=== PATIENT | male | born 1990 | race Caucasian/White ===

== ENCOUNTER → 2021-01-06 15:05 | Outpatient (CLI) | payer BC, SELFPAY ==
--- NOTE | 2021-01-06 15:15 | RAD_ITS ---
STUDY: X-RAY - LUMBAR SPINE REASON FOR EXAM: Male, 30 years old. LOW BACK PAIN BACK AND LEG PAIN TECHNIQUE: XR Spine Lumbar 2 or 3 Views COMPARISON: None FINDINGS: There is an exaggerated lumbar lordosis. There is no substantial scoliosis. There is a normal alignment of the vertebrae. Normal vertebral bodies and endplates. Normal disc space heights. Stool throughout the colon. The soft tissue structures are unremarkable. RAD/Lumbar Spine 2 or 3 Views IMPRESSION: There is an exaggerated lumbar lordosis. Constipation Electronically Signed: Claude Jimenez MD at 16:37 EST , Service support ,
== END ==
LOC: RAD 15:09
PROVIDERS: Referring Provider Anesthesiology Pain Medicine; Visit Provider Anesthesiology Pain Medicine
DX: M54.50 Low back pain, unspecified (principal); M79.606 Pain in leg, unspecified
CPT/HCPCS: 72100

== ENCOUNTER → 2021-02-11 15:19 | Outpatient (CLI) | payer BC, SELFPAY ==
--- NOTE | 2021-02-11 16:00 | MRI_ITS ---
STUDY: MRI LUMBAR SPINE WITHOUT CONTRAST REASON FOR EXAM: Male, 30 years old. BACK AND LEG PAIN TECHNIQUE: Standardized fat and water weighted pulse sequences were obtained in the sagittal and axial planes. COMPARISON: 01/06/2021 radiographs FINDINGS: T12-L1: Schmorl''s nodes. Mild disc bulge. Normal bilateral facet joints. Normal central canal and bilateral lateral recesses. Normal bilateral intervertebral neural foramina. Normal lumbar lordosis. There is no substantial scoliosis. Normal conus medullaris that terminates at the level of L1. L1-2: Normal endplates. Normal disc height, hydration and morphology. Normal bilateral facet joints. Normal central canal and bilateral lateral recesses. Normal bilateral intervertebral neural foramina. L2-3: Normal endplates. Normal disc height, hydration and morphology. Normal bilateral facet joints. Normal central canal and bilateral lateral recesses. Normal bilateral intervertebral neural foramina. L3-4: Normal endplates. Mild disc bulge indents the thecal sac. Normal bilateral facet joints. Normal central canal and bilateral lateral recesses. Normal bilateral intervertebral neural foramina. L4-5: Normal endplates. Mild disc bulge. Normal bilateral facet joints. Normal central canal and bilateral lateral recesses. Normal bilateral intervertebral neural foramina. L5-S1: Normal endplates. Normal disc height, hydration and morphology. Moderate left facet arthrosis. Normal central canal and bilateral lateral recesses. Normal bilateral intervertebral neural foramina. Normal visualized sacral ala. Normal visualized paraspinous soft tissue structures. MRI/Spine Lumbar (Routine) IMPRESSION: Mild disc bulge at T12-L1, L3-4, and L4-5. Moderate left facet arthrosis at L5-S1. No significant spinal canal or neural foraminal stenosis. Electronically Signed: Андрей Watkins MD at 3:25 EST Tel , Service support ,
== END ==
PROVIDERS: Referring Provider Anesthesiology Pain Medicine; Visit Provider Anesthesiology Pain Medicine
DX: M54.9 Dorsalgia, unspecified (principal); M79.606 Pain in leg, unspecified
CPT/HCPCS: 72148